=== PATIENT | female | born 1955 | race Caucasian/White ===

== ENCOUNTER 2025-05-14 13:33 | Inpatient (IN) | payer MEDICARE, MEDICAID ==
[~2025-05-14] VITALS: Ht 162.6 cm; Wt 52.2 kg
[2025-05-14 18:03] VITALS: BP 124/66; PULSE 81; RESP 18; TEMP 97.3; O2SAT 99
[2025-05-15 02:13] VITALS: BP 128/77; PULSE 93; RESP 16; TEMP 97.5; O2SAT 99
[2025-05-15] MEDS: OLANZapine 5 MG RAPDIS TABLET PO PRN (02:23)
[2025-05-15] MEDS: ZOLPIDEM TARTRATE 10 MG TABLET PO PRN (02:23)
[2025-05-15] MEDS ORDERED: ONDANSETRON 4 MG TABLET PO PRN (07:15)
[2025-05-15] MEDS ORDERED: OMEPRAZOLE 20 MG CAPSULE PO PRN (07:15)
[2025-05-15] MEDS ORDERED: MAG HYDROX/ALUMINUM HYD/SIMETH ES 30 ML SUSPENSION UDCUP PO PRN (07:15)
[2025-05-15] MEDS ORDERED: BACITRACIN 28 GM OINTMENT TP PRN (07:15)
[2025-05-15] MEDS ORDERED: DOCUSATE SODIUM 100 MG CAPSULE PO PRN (07:15)
[2025-05-15] MEDS ORDERED: PETROLATUM,WHITE 28 GM JELLY TP PRN (07:15)
[2025-05-15] MEDS ORDERED: ACETAMINOPHEN 325 MG TABLET PO PRN (07:15)
[2025-05-15] MEDS ORDERED: MAGNESIUM HYDROXIDE SUSPENSION 30 ML UDCUP PO PRN (07:15)
[2025-05-15] MEDS ORDERED: ALBUTEROL SULFATE HFA 90 MCG/PUFF 8 GM INHALER IH PRN (07:15)
[2025-05-15 09:37] VITALS: BP 139/98; PULSE 89; RESP 18; TEMP 98.3; O2SAT 99
[2025-05-15 21:02] VITALS: RESP 17
[2025-05-16 08:38] VITALS: BP 117/64; PULSE 79; RESP 17; TEMP 98; O2SAT 97
[2025-05-16 08:47] LABS: PLATELET COUNT (AUTO) 327 K/uL (150-450); RED BLOOD CELL COUNT(AUTO) 4.27 MIL/uL (4.00-5.20); RED CELL DISTRIBUTION WIDTH 13.9 % (11.5-14.5); WHITE BLOOD COUNT (AUTO) 5.1 K/uL (4.5-11.0)
[2025-05-16 09:12] LABS: ASPARTATE AMINOTRANSFERASE 17 U/L (15-37); CALCIUM, TOTAL 9.6 mg/dL (8.8-10.5); CHOL/HDL RATIO 4.5 (3.9-5.7); CREATININE 0.82 mg/dL (0.60-1.30); GLOMERULAR FILTR. RATE CALC > 60 mL/min (>60); GLUCOSE,RANDOM 81 mg/dL (70-110); LDL CHOL (CALC.) 169 mg/dL (0-130); PHOSPHORUS 3.5 mg/dL (2.5-4.9); SODIUM SERUM 139 mmol/L (136-145); TOTAL PROTEIN, SERUM 6.9 g/dL (6.4-8.2); UREA NITROGEN, BLOOD 14 mg/dL (7-18)
[2025-05-16 20:15] VITALS: BP 129/73; PULSE 89; RESP 18; TEMP 97.8; O2SAT 99
[2025-05-17 08:46] VITALS: BP 126/84; PULSE 88; RESP 17; TEMP 97.5; O2SAT 96
[2025-05-17 20:24] VITALS: BP 113/63; PULSE 73; RESP 18; TEMP 98; O2SAT 97
[2025-05-17] MEDS: ROSUVASTATIN CALCIUM 10 MG TABLET PO SCH (20:53)
[2025-05-18 08:30] VITALS: BP 103/60; PULSE 85; RESP 16; TEMP 99; O2SAT 99
[2025-05-18 20:29] VITALS: BP 118/52; PULSE 88; RESP 18; TEMP 98.1; O2SAT 100
[2025-05-19] MEDS: IBUPROFEN 600 MG TABLET PO PRN (00:59)
[2025-05-19 01:00] VITALS: BP 154/90; PULSE 100; RESP 18; TEMP 97.5; O2SAT 100
[2025-05-19 07:30] VITALS: BP 130/81; PULSE 95; RESP 16; TEMP 98.2; O2SAT 96
[2025-05-19 08:21] VITALS: BP 130/81; PULSE 95; RESP 16; TEMP 98.2; O2SAT 96
[2025-05-19 20:12] VITALS: BP 99/61; PULSE 79; RESP 17; TEMP 98.1; O2SAT 98
[2025-05-20 01:50] VITALS: BP 137/68; PULSE 96; RESP 18; TEMP 98.2; O2SAT 98
[2025-05-20 02:50] VITALS: RESP 18
[2025-05-20 07:45] VITALS: BP 98/63; PULSE 83; RESP 16; TEMP 98; O2SAT 98
[2025-05-20 20:08] VITALS: BP 105/81; PULSE 98; RESP 18; TEMP 99.5; O2SAT 100
[2025-05-20 22:54] VITALS: TEMP 99
[2025-05-21] MEDS: LOPERAMIDE HCL 2 MG CAPSULE PO PRN (01:17)
[2025-05-21 08:07] VITALS: BP 112/63; PULSE 90; RESP 16; TEMP 97.9; O2SAT 99
[2025-05-21] MEDS: BENZOCAINE/MENTHOL [CEPACOL] LOZENGE PO PRN (17:01)
[2025-05-21 20:06] VITALS: BP 135/85; PULSE 85; RESP 19; TEMP 97.9; O2SAT 97
[2025-05-22 08:27] VITALS: BP 145/66; PULSE 100; RESP 18; TEMP 98.6; O2SAT 97
[2025-05-22 20:10] VITALS: BP 148/76; PULSE 100; RESP 16; TEMP 97.8; O2SAT 96
[2025-05-23 08:38] VITALS: BP 135/70; PULSE 91; RESP 17; TEMP 98.7; O2SAT 98
[2025-05-23 20:14] VITALS: RESP 18
[2025-05-24 08:09] VITALS: BP 111/60; PULSE 88; RESP 18; TEMP 98; O2SAT 100
[2025-05-24 20:10] VITALS: BP 120/73; PULSE 82; RESP 18; TEMP 97.7; O2SAT 99
[2025-05-25 08:25] VITALS: BP 125/83; PULSE 65; RESP 17; TEMP 98.3; O2SAT 96
[2025-05-25 20:12] VITALS: BP 127/80; PULSE 82; RESP 19; TEMP 97.9; O2SAT 97
[2025-05-26 08:20] VITALS: BP 100/60; PULSE 78; RESP 16; TEMP 97.4; O2SAT 95
[2025-05-26 15:50] VITALS: BP 109/85; PULSE 86; RESP 18; TEMP 97.8; O2SAT 98
[2025-05-26 20:33] VITALS: BP 104/71; PULSE 87; RESP 18; TEMP 97.6; O2SAT 98
[2025-05-26 20:41] LABS: GLUCOMETER DEV NAME(LOC) 3E.I 2; GLUCOSE,POINT OF CARE 202 MG/DL (70-110)
[2025-05-27 08:29] VITALS: BP 125/94; PULSE 75; RESP 18; TEMP 97.6; O2SAT 95
[2025-05-27 08:32] VITALS: BP 125/94; PULSE 75; RESP 18; TEMP 97.6; O2SAT 95
[2025-05-27 16:12] LABS: APPEARANCE,URINE HAZY (CLEAR); GLUCOSE, URINE (UA) NEGATIVE (NEGATIVE); NITRATE,URINE NEGATIVE (NEGATIVE); OCCULT BLOOD,URINE NEGATIVE (NEGATIVE); SPECIFIC GRAVITIY, URINE 1.016 (1.003-1.030)
[2025-05-27 16:16] LABS: LEUKOCYTE ESTERASE ,URINE NEGATIVE (NEGATIVE); PH,URINE DRUG SCREEN 7.5 (5.0-8.0)
[2025-05-27 16:17] LABS: ALCOHOL, URINE DRUG SCREEN NEGATIVE (NEGATIVE); AMPHET/METH SCREEN,URINE NEGATIVE (NEGATIVE); BARBITURATE SCREEN, URINE NEGATIVE (NEGATIVE); CANNABINOID SCREEN,URINE NEGATIVE (NEGATIVE); COCAINE SCREEN,URINE NEGATIVE (NEGATIVE); METHADONE SCREEN, URINE NEGATIVE (NEGATIVE)
[2025-05-27 20:13] VITALS: BP 123/67; PULSE 86; RESP 18; TEMP 97.7; O2SAT 98
[2025-05-28 14:15] VITALS: BP 125/88; PULSE 86; RESP 18; TEMP 97.8; O2SAT 98
[2025-05-28 20:49] VITALS: BP 110/64; PULSE 85; RESP 18; TEMP 98.2; O2SAT 97
[2025-05-29 12:32] VITALS: BP 117/69; PULSE 78; RESP 16; TEMP 97.9; O2SAT 100
[2025-05-29 21:16] VITALS: BP 114/63; PULSE 97; RESP 17; TEMP 97.8; O2SAT 97
[2025-05-30 09:16] VITALS: BP 119/90; PULSE 75; RESP 18; TEMP 98.1; O2SAT 100
[2025-05-30 20:17] VITALS: BP 130/78; PULSE 99; RESP 18; TEMP 97.9; O2SAT 99
[2025-05-31 08:52] VITALS: BP 122/64; PULSE 84; RESP 18; TEMP 98.1; O2SAT 96
[2025-05-31 21:35] VITALS: BP 128/91; PULSE 82; RESP 18; TEMP 98.4; O2SAT 99
[2025-06-01 11:00] VITALS: BP 99/77; PULSE 92; RESP 18; TEMP 97.2; O2SAT 96
[2025-06-01 21:52] VITALS: BP 123/59; PULSE 84; RESP 19; TEMP 97.6; O2SAT 100
[2025-06-02 10:49] VITALS: BP 126/57; PULSE 92; RESP 17; TEMP 97.6; O2SAT 97
[2025-06-02 20:30] VITALS: BP 131/85; PULSE 98; RESP 18; TEMP 97.6; O2SAT 99
[2025-06-03 09:16] VITALS: BP 100/56; PULSE 74; RESP 17; TEMP 97.5; O2SAT 98
[2025-06-03 20:00] VITALS: BP 111/59; PULSE 63; RESP 16; TEMP 97.9; O2SAT 98
[2025-06-04 09:32] VITALS: BP 102/66; PULSE 74; RESP 17; TEMP 97.7; O2SAT 98
[2025-06-04 20:38] VITALS: BP 110/70; PULSE 81; RESP 18; TEMP 97.3; O2SAT 98
[2025-06-05 08:48] VITALS: BP 120/76; PULSE 80; RESP 18; TEMP 97.6; O2SAT 98
[2025-06-05] MEDS: DOCUSATE SODIUM 100 MG CAPSULE PO SCH (12:37)
[2025-06-05 20:00] VITALS: BP 120/64; PULSE 83; RESP 18; TEMP 97.1; O2SAT 100
[2025-06-06 09:13] VITALS: BP 110/59; PULSE 99; RESP 18; TEMP 97.9; O2SAT 100
[2025-06-06 20:00] VITALS: BP 132/77; PULSE 94; RESP 18; TEMP 97; O2SAT 97
[2025-06-07 11:25] VITALS: BP 106/61; PULSE 88; RESP 18; TEMP 97.6; O2SAT 98
[2025-06-07 20:00] VITALS: BP 117/63; PULSE 100; RESP 18; TEMP 98.1; O2SAT 100
[2025-06-08 08:49] VITALS: BP 100/61; PULSE 77; RESP 18; TEMP 98; O2SAT 100
[2025-06-08 10:42] VITALS: BP 100/61; PULSE 77; RESP 18; TEMP 98; O2SAT 100
[2025-06-08 21:34] VITALS: BP 108/70; PULSE 80; RESP 17; TEMP 97.9; O2SAT 97
[2025-06-09 08:37] VITALS: BP 122/56; PULSE 68; RESP 18; TEMP 97.7; O2SAT 96
[2025-06-09 22:26] VITALS: BP 110/60; PULSE 70; RESP 17; TEMP 98; O2SAT 98
[2025-06-10 07:45] LABS: PLATELET COUNT (AUTO) 390 K/uL (150-450); RED BLOOD CELL COUNT(AUTO) 3.96 MIL/uL (4.00-5.20); RED CELL DISTRIBUTION WIDTH 14.7 % (11.5-14.5); WHITE BLOOD COUNT (AUTO) 5.1 K/uL (4.5-11.0)
[2025-06-10 07:50] LABS: CALCIUM, TOTAL 9.3 mg/dL (8.8-10.5); CHOL/HDL RATIO 2.9 (3.9-5.7); CREATININE 0.64 mg/dL (0.60-1.30); GLOMERULAR FILTR. RATE CALC > 60 mL/min (>60); GLUCOSE,RANDOM 94 mg/dL (70-110); LDL CHOL (CALC.) 81 mg/dL (0-130); PHOSPHORUS 3.2 mg/dL (2.5-4.9); SODIUM SERUM 139 mmol/L (136-145); TOTAL PROTEIN, SERUM 6.5 g/dL (6.4-8.2); UREA NITROGEN, BLOOD 17 mg/dL (7-18)
[2025-06-10 10:23] VITALS: BP 110/80; PULSE 72; RESP 17; TEMP 97.9; O2SAT 97
[2025-06-10 10:49] LABS: ASPARTATE AMINOTRANSFERASE 19 U/L (15-37)
[2025-06-10 20:00] VITALS: BP 121/71; PULSE 85; RESP 18; TEMP 97.3; O2SAT 97
[2025-06-11 13:48] VITALS: BP 124/62; PULSE 77; RESP 19; TEMP 97.8; O2SAT 99
[2025-06-11 21:25] VITALS: BP 109/56; PULSE 79; RESP 16; TEMP 97.2; O2SAT 98
[2025-06-12 09:42] VITALS: BP 110/71; PULSE 77; RESP 18; TEMP 97.4; O2SAT 99
[2025-06-12 21:53] VITALS: BP 11/67; PULSE 78; RESP 20; TEMP 98.2; O2SAT 97
[2025-06-13 10:54] VITALS: BP 96/56; PULSE 69; RESP 17; TEMP 98.1; O2SAT 100
[2025-06-13 20:59] VITALS: BP 113/85; PULSE 74; RESP 18; TEMP 96.5; O2SAT 99
[2025-06-14 09:20] VITALS: BP 104/59; PULSE 79; RESP 16; TEMP 97.9; O2SAT 98
[2025-06-14 20:16] VITALS: BP 111/51; PULSE 79; RESP 17; TEMP 97.8; O2SAT 97
[2025-06-15 08:45] VITALS: BP 131/73; PULSE 77; RESP 18; TEMP 97.3; O2SAT 96
[2025-06-15 20:07] VITALS: BP 122/72; PULSE 85; RESP 18; TEMP 97.5
[2025-06-16 09:28] VITALS: BP 115/56; PULSE 65; RESP 18; TEMP 97.9; O2SAT 98
[2025-06-16 22:32] VITALS: BP 124/61; PULSE 79; RESP 18; TEMP 98.6; O2SAT 98
[2025-06-17 08:56] VITALS: BP 117/49; PULSE 64; RESP 16; TEMP 97.9; O2SAT 98
[2025-06-17 20:29] VITALS: BP 124/69; PULSE 85; RESP 18; TEMP 97.7; O2SAT 99
[2025-06-18 08:50] VITALS: BP 102/62; PULSE 67; RESP 18; TEMP 97.9; O2SAT 97
[2025-06-18 20:00] VITALS: BP 115/66; PULSE 80; RESP 18; TEMP 97.9; O2SAT 97
[2025-06-19 13:17] VITALS: BP 124/60; PULSE 71; RESP 16; TEMP 97.3; O2SAT 100
[2025-06-19 20:00] VITALS: BP 106/94; PULSE 82; RESP 18; TEMP 97.1; O2SAT 99
[2025-06-20 09:00] VITALS: BP 117/68; PULSE 71; RESP 16; TEMP 97; O2SAT 100
[2025-06-20 20:41] VITALS: BP 114/85; PULSE 78; RESP 17; TEMP 98; O2SAT 97
[2025-06-21 08:35] VITALS: BP 113/58; PULSE 69; RESP 18; TEMP 98.4; O2SAT 98
[2025-06-21 20:34] VITALS: BP 115/67; PULSE 86; RESP 18; TEMP 96.7; O2SAT 99
[2025-06-22 08:30] VITALS: BP 127/63; PULSE 69; RESP 18; TEMP 97.2; O2SAT 95
[2025-06-22 21:26] VITALS: BP 123/110; PULSE 78; RESP 18; TEMP 97.7; O2SAT 97
[2025-06-23 08:08] VITALS: BP 112/63; PULSE 71; RESP 18; TEMP 98.2; O2SAT 98
[2025-06-23 20:00] VITALS: BP 112/78; PULSE 88; RESP 18; TEMP 97.1; O2SAT 98
[2025-06-24] MEDS ORDERED: DOCU-385 PO (11:08)
[2025-06-24] MEDS ORDERED: ROSU10TA72 PO (11:08)
== END 2025-06-24 14:10 | DRG 885 ==
LOC: B2S 16:47 → 3EI 05-26 15:17 → 3EX 06-02 18:59
PROVIDERS: ADMIT Psychiatry & Neurology Psychiatry; ATTEND Psychiatry & Neurology Psychiatry
PROC: GZ56ZZZ Individual Psychotherapy, Supportive (ICD-10-PCS; 2025-05-15)
PROC: GZ52ZZZ Individual Psychotherapy, Cognitive (ICD-10-PCS; 2025-05-16)
PROC: GZHZZZZ Group Psychotherapy (ICD-10-PCS; principal; 2025-05-18)
DX: F29 Unspecified psychosis not due to a substance or known physiological condition (principal); E46 Unspecified protein-calorie malnutrition; Z68.1 Body mass index [BMI] 19.9 or less, adult; G47.00 Insomnia, unspecified; F41.9 Anxiety disorder, unspecified; J44.9 Chronic obstructive pulmonary disease, unspecified; I10 Essential (primary) hypertension; Z63.8 Other specified problems related to primary support group; Z91.81 History of falling; Z72.0 Tobacco use; M19.90 Unspecified osteoarthritis, unspecified site
CPT/HCPCS: 80053; 80061; 80307; 81003; 82962; 83036; 83735; 84100; 84443; 85025; 87081; 92610; 97116; 97163; G0378; Q0162